=== PATIENT | female | born 1970 | race Caucasian/White ===

== ENCOUNTER 2018-03-23 10:07 | Inpatient (IN) | payer SELFPAY ==
[2018-03-23] MEDS ORDERED: LORazepam 2 MG/ML INJ IVP ONE (10:52)
--- NOTE | 2018-03-23 10:52 | EDPHY ---
General Time Seen by Provider: 03/23/18 10:30 Narrative: CHIEF COMPLAINT: I took cyanide on Monday, chest pain HISTORY OF PRESENT ILLNESS: Patient presents private vehicle with her friend with complaints ingestion cyanide on Monday. She says that she has been increasingly stressed and anxious over the past few weeks. She reports that her currently lives in [place] and she flies frequently back and forth. She also has a great fear of flying. 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 She says that this all culminated with her "just wanted to all go away." She reports taking cyanide on Monday but immediately feeling remorseful. She immediately tried to make herself vomit, and she did so several times. She says over the past few days she has had some chest pain, esophageal pain, nausea and some epigastric pain. [id number] at times. Moderate to severe at other times. No trauma or injury. No hematemesis. No dark tarry stools or hematochezia. She has no other associated complaints or modifying factors. PSYCHIATRIC DIAGNOSES: None PRIOR PSYCHIATRIC EVALUATIONS: Anxiety. Fear of flying M1/DETAINER: 10:50 a.m., Dr. Yadav and myself REVIEW OF SYSTEMS: Ten systems reviewed and are negative unless otherwise noted in the HPI EXAMINATION General Appearance: Alert, no distress. Anxious. Well-appearing. Head: normocephalic, atraumatic Eyes: Pupils equal and round, no conjunctival pallor or injection ENT, Mouth: Mucous membranes moist Neck: Normal inspection, supple, non-tender Respiratory: Lungs are clear to auscultation. No wheezing rhonchi or crackles Cardiovascular tachycardic rate and rhythm. No murmur. Gastrointestinal: Abdomen is soft and nontender Back: non-tender, no bony abnormalities Neurological: A&O, nonfocal, normal gait Skin: Warm and dry, no rash Extremities: Nontender, no pedal edema Psychiatric: Anxious mood and affect. She admits to previous suicidal ideation with no intent to harm herself at this time. She denies feeling suicidal in the past 48 hr. DIFFERENTIAL DIAGNOSES: Including but not limited to attempted suicide, depression, anxiety, stress, esophagitis, gastritis MDM: 10:50 a.m. Reported attempted sign-out ingestion on Monday with immediate remorse. She made herself vomit immediately several times. She now complains of some esophageal pain, occasional chest pain shortness of breath. She has also had some epigastric discomfort at times. She has no intent to harm herself and adamantly denies feeling suicidal over the past 48 hr. I will discuss with poison Control and obtain laboratory studies. 11:05 a.m. Case discussed with Poison Control. Recommendations are symptomatic control. No specific tests indicated. 11:50 a.m. Laboratory studies reveal an acute, critical hypokalemia with an acute kidney injury as well. The ratios do suggest pre renal azotemia. I have ordered additional fluid and she has already received 1 L. I have ordered p.o. And IV potassium. Shared he has an EKG obtained with no conduction delay. Chest x- ray unremarkable. D-dimer is negative. I discussed case with the hospitalist, [place]. The patient be admitted to the step-down unit on a monitor tech to Dr. Janeen Palomares. Patient is aware of this. She is admitted stable condition. 1:[address] Schmitt, radiology. Renal ultrasound as no acute findings. 1:23 p.m. Case discussed again with poison control. They recommended that we check a lactic acid and bicarb. They also recommend a 1 time oral loading dose of N- acetylcysteine. They recommend trending the liver function test. I have ordered these tests and here to these recommendations. I have also discussed this with the admitting physician Dr. Palomares. 2:20 p.m. Lactic acid is-0.9. Her bicarb is trending up from 11 to 16. She is mildly acidotic at 7.26. Her repeat potassium 7.5. Serum creatinine is also trending down. SUPERVISION: Patient was independently examined, but I discussed the case with my secondary supervising physician Dr. Yadav Consultation: Poison Control - Diagnostics Imaging Results: Imaging Impressions Chest X-Ray 03/23/18 10:53 Impression: No acute findings in the chest. Imaging: I viewed and interpreted images myself - History History Review: I reviewed the patient's medical records Smoking Status: Current some day smoker - Objective Vital Signs: Initial Vital Signs Heart Rate 138 H 03/23/18 10:14 Respiratory Rate 18 03/23/18 10:14 Blood Pressure 143/92 H 03/23/18 10:14 O2 Sat (%) 97 03/23/18 10:14 O2 Delivery Mode Room Air Allergies/Adverse Reactions: No Known Allergies Allergy (Verified 03/23/18 10:17) Home Medications: Medication Instructions Recorded Acetamn/Diphenhydramine 500/25 1 - 3 mg PO HS PRN 03/23/18 [Tylenol PM (*)] Acyclovir [Zovirax 400 mg (*)] 400 mg PO DAILY 03/23/18 Multivitamins [Multivitamin (*)] 1 each PO DAILY 03/23/18 Naphazoline HCl/Glycerin [Clear 1 drop OP DAILY PRN 03/23/18 Eyes Redness Relief Drop] Laboratory Results: Laboratory Results 03/23/18 10:50 03/23/18 10:50 03/23/18 03/23/18 03/23/18 11:07 10:50 10:50 WBC RBC Hgb Hct MCV MCH MCHC RDW Plt Count MPV Neut % (Auto) Lymph % (Auto) [place] % (Auto) Eos % (Auto) Baso % (Auto) Nucleat RBC Rel Count Absolute Neuts (auto) Absolute Lymphs (auto) Absolute Monos (auto) Absolute Eos (auto) Absolute Basos (auto) Absolute Nucleated RBC Immature Gran % Immature Gran # D-Dimer Sodium 127 mEq/L L mEq/L (135-145) Potassium 2.7 mEq/L L* mEq/L (3.5-5.2) Chloride 102 mEq/L mEq/L (97-110) Carbon Dioxide 11 mEq/l L mEq/l (22-31) Anion Gap 14 mEq/L mEq/L (6-14) BUN 25 mg/dL H mg/dL (7-23) Creatinine 3.2 mg/dL H mg/dL (0.6-1.0) Estimated GFR 16 Glucose 180 mg/dL H mg/dL (70-100) Calcium 10.6 mg/dL H mg/dL (8.5-10.4) Total Bilirubin 1.2 mg/dL mg/dL (0.1-1.4) Conjugated Bilirubin 0.4 mg/dL mg/dL (0.0-0.5) Unconjugated Bilirubin 0.8 mg/dL mg/dL (0.0-1.1) AST 70 IU/L H IU/L (14-46) ALT 73 IU/L H IU/L (9-52) Alkaline Phosphatase 78 IU/L IU/L (38-126) POC Troponin I 0.00 ng/mL ng/mL (0.00-0.08) Total Protein 7.8 g/dL g/dL (6.3-8.2) Albumin 4.6 g/dL g/dL (3.5-5.0) Beta HCG, Qual NEGATIVE Salicylates < 1.0 mg/dL L mg/dL (2.0-20.0) Acetaminophen < 10 mcg/mL L mcg/mL (10-30) Ethyl Alcohol < 10 mg/dL mg/dL (0-10) 03/23/18 03/23/18 10:50 10:46 WBC 10.94 10^3/uL H 10^3/uL (3.80-9.50) RBC 4.60 10^6/uL 10^6/uL (4.18-5.33) Hgb 15.0 g/dL g/dL (12.6-16.3) Hct 42.3 % % (38.0-47.0) MCV 92.0 fL fL (81.5-99.8) MCH 32.6 pg pg (27.9-34.1) MCHC 35.5 g/dL g/dL (32.4-36.7) RDW 11.9 % % (11.5-15.2) Plt Count 250 10^3/uL 10^3/uL (150-400) MPV 9.4 fL fL (8.7-11.7) Neut % (Auto) 81.2 % H % (39.3-74.2) Lymph % (Auto) 9.3 % L % (15.0-45.0) [place] % (Auto) 7.9 % % (4.5-13.0) Eos % (Auto) 0.5 % L % (0.6-7.6) Baso % (Auto) 0.4 % % (0.3-1.7) Nucleat RBC Rel Count 0.0 % % (0.0-0.2) Absolute Neuts (auto) 8.89 10^3/uL H 10^3/uL (1.70-6.50) Absolute Lymphs (auto) 1.02 10^3/uL 10^3/uL (1.00-3.00) Absolute Monos (auto) 0.86 10^3/uL H 10^3/uL (0.30-0.80) Absolute Eos (auto) 0.05 10^3/uL 10^3/uL (0.03-0.40) Absolute Basos (auto) 0.04 10^3/uL 10^3/uL (0.02-0.10) Absolute Nucleated RBC 0.00 10^3/uL 10^3/uL (0-0.01) Immature Gran % 0.7 % % (0.0-1.1) Immature Gran # 0.08 10^3/uL 10^3/uL (0.00-0.10) D-Dimer < 0.27 ug/mLFEU ug/mLFEU (0.00-0.50) Sodium Potassium Chloride Carbon Dioxide Anion Gap BUN Creatinine Estimated GFR Glucose Calcium Total Bilirubin Conjugated Bilirubin Unconjugated Bilirubin AST ALT Alkaline Phosphatase POC Troponin I Total Protein Albumin Beta HCG, Qual Salicylates Acetaminophen Ethyl Alcohol Medications Given: Discontinued Medications Al Hydroxide/Mg Hydroxide (Maalox Susp) 30 ml PO ONCE ONE Stop: 03/23/18 11:24 Last Admin: 03/23/18 11:36 Dose: 30 ml Hyoscyamine Sulfate (Levsin, Hyomax-Sl) 0.25 mg PO ONCE ONE Stop: 03/23/18 11:24 Last Admin: 03/23/18 11:36 Dose: 0.25 mg Sodium Chloride (Ns) 1,000 mls @ 0 mls/hr IV EDNOW ONE; Wide Open PRN Reason: Protocol Stop: 03/23/18 10:54 Last Admin: 03/23/18 11:09 Dose: 1,000 mls Potassium Chloride (Potassium Cl 20 Meq (Premix)) 100 mls @ 50 mls/hr IV EDNOW ONE Stop: 03/23/18 13:42 Last Admin: 03/23/18 12:07 Dose: Not Given Sodium Chloride (Ns) 1,000 mls @ 0 mls/hr IV EDNOW ONE; Wide Open PRN Reason: Protocol Stop: 03/23/18 11:47 Last Admin: 03/23/18 12:04 Dose: 1,000 mls Potassium Chloride (Potassium Cl 10 Meq (Premix)) 100 mls @ 100 mls/hr IV Q1H SUSAN Stop: 03/23/18 13:59 Last Admin: 03/23/18 13:50 Dose: 100 mls Lidocaine (Lidocaine 2% Viscous) 15 ml PO ONCE ONE Stop: 03/23/18 11:24 Last Admin: 03/23/18 11:36 Dose: 15 ml Lorazepam (Ativan Injection) 1 mg IVP EDNOW ONE Stop: 03/23/18 10:53 Last Admin: 03/23/18 11:09 Dose: 1 mg Pantoprazole Sodium (Protonix) 40 mg IVP EDNOW ONE Stop: 03/23/18 11:24 Last Admin: 03/23/18 11:36 Dose: 40 mg Potassium Chloride (Klor Packets) 40 meq PO EDNOW ONE Stop: 03/23/18 11:44 Last Admin: 03/23/18 12:00 Dose: 40 meq Promethazine HCl (Phenergan) 12.5 mg IVP ONCE ONE Stop: 03/23/18 10:54 Last Admin: 03/23/18 11:08 Dose: 12.5 mg Point of Care Test Results: Chemistry 03/23/18 11:07 POC Troponin I 0.00 ng/mL ng/mL (0.00-0.08) Departure - Departure Disposition: [facility] Clinical Impression: Acute kidney injury, Hyperkalemia, Elevated liver function tests Condition: Good
[2018-03-23] MEDS ORDERED: NS 1,000 ML IV ONE ×2 (10:53→11:46)
[2018-03-23] MEDS ORDERED: PROMETHAZINE HCL 25 MG/ML INJ IVP ONE (10:53)
[2018-03-23 11:06] LABS: PLATELET COUNT 250 10^3/uL (150-400)
[2018-03-23] MEDS ORDERED: PANTOPRAZOLE SODIUM 40 MG VIAL IVP ONE (11:23)
[2018-03-23] MEDS ORDERED: MAG HYDROX/AL HYDROX/SIMETH 30 ML UDCUP PO ONE (11:23)
[2018-03-23] MEDS ORDERED: HYOSCYAMINE SULFATE 0.125 MG TAB PO ONE (11:23)
[2018-03-23] MEDS ORDERED: LIDOCAINE 2% VISCOUS 15 ML UDCUP PO ONE (11:23)
[2018-03-23] MEDS ORDERED: POTASSIUM Cl (KCl) 100 ML IV ONE (11:43)
[2018-03-23] MEDS ORDERED: POTASSIUM CL 20 MEQ PKT PO ONE (11:43)
[2018-03-23] MEDS ORDERED: POTASSIUM Cl (KCl) 10 MEQ/100 ML BAG IV ONE (11:54)
[2018-03-23] MEDS: POTASSIUM Cl (KCl) 100 ML IV SCH ×2 (12:03→13:50)
[2018-03-23] MEDS ORDERED: ACETAMINOPHEN 325 MG TAB PO PRN (12:05)
[2018-03-23] MEDS ORDERED: ONDANSETRON 4 MG/2 ML VIAL IVP PRN (12:05)
[2018-03-23] MEDS ORDERED: ONDANSETRON DISINTEGRATING 4 MG TAB PO PRN (12:05)
[2018-03-23] MEDS ORDERED: ACETAMN/DIPHENHYDRAMINE 500/25MG TAB PO PRN (12:13)
[2018-03-23] MEDS ORDERED: GLYCERIN OP PRN (12:13)
[2018-03-23] MEDS ORDERED: NAPHAZOLINE HCL OP PRN (12:13)
[2018-03-23] MEDS ORDERED: ACETYLCYSTEINE 20% IH/PO 4 ML VIAL PO SCH (13:45)
--- NOTE | 2018-03-23 15:58 | PDGENHP ---
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 Prior to this, she was distressed by a conflict with an old friend. She also lives in a different state than her and has been stressed with travel and work. 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 Due to stress and conflict, she considered ingesting cyanide with intent to self harm. She ordered what she thought was cyanide from the internet, but then regretted it and tried to cancel the order. The substance arrived and she attempted to return it, but carried it around for days. After a conflict with a friend, she became distraught and impulsive and took the substance. She then spent several days induced vomiting and says she vomited consistently for 3-4 days. No hematemesis or coffee ground emesis. No fevers/chills. No flank pain or urinary symptoms, but she did note dark, concentrated urine. Today, she felt off balance and presented to the ED. She is embarrassed by what she did and states she is not currently suicidal. She does have h/o anxiety and panic, for which she takes occasional Valium. In the ED, she was found to have CHANEL with electrolyte disturbances and is admitted for further management. History Information - Allergies/Home Medication List Allergies/Adverse Reactions: No Known Allergies Allergy (Verified 03/23/18 10:17) Home Medications: Acetamn/Diphenhydramine 500/25 [Tylenol PM (*)] 1 - 3 mg PO HS PRN 03/23/18 [ Last Taken 03/22/18 3 tabs] Acyclovir [Zovirax 400 mg (*)] 400 mg PO DAILY 03/23/18 [Last Taken Unknown] Multivitamins [Multivitamin (*)] 1 each PO DAILY 03/23/18 [Last Taken Unknown] Naphazoline HCl/Glycerin [Clear Eyes Redness Relief Drop] 1 drop OP DAILY PRN [Last Taken Unknown] I have personally reviewed and updated: family history, medical history, social history, surgical history - Past Medical History Additional medical history: anxiety, panic attacks. chronic back pain - Surgical History Reports: no pertinent surgical hx - Family History Additional family history: brother has schizophrenia - Social History Smoking Status: Current some day smoker Alcohol Use: Other (intermittent high risk drinking) Drug Use: None Additional social history: , but lives out of state. 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 Review of Systems Review of Systems: ROS: 10pt was reviewed & negative except for what was stated in HPI & below Physical Exam Physical Exam: Temp Pulse Resp BP Pulse Ox 36.9 C 100 20 144/100 H 99 03/23/18 15:15 03/23/18 15:15 03/23/18 15:15 03/23/18 15:15 03/23/18 15:15 Constitutional: no apparent distress Eyes: PERRL Ears, Nose, Mouth, Throat: dry mucous membranes Cardiovascular: regular rate and rhythym Respiratory: no respiratory distress, clear to auscultation Gastrointestinal: normoactive bowel sounds, soft, non-tender abdomen Skin: warm Musculoskeletal: full muscle strength Neurologic: AAOx3 Psychiatric: interacting appropriately Lab Data & Imaging Review 03/23/18 10:50 03/23/18 13:35 WBC 10.94 10^3/uL (3.80-9.50) H 03/23/18 10:50 RBC 4.60 10^6/uL (4.18-5.33) 03/23/18 10:50 Hgb 15.0 g/dL (12.6-16.3) 03/23/18 10:50 Hct 42.3 % (38.0-47.0) 03/23/18 10:50 MCV 92.0 fL (81.5-99.8) 03/23/18 10:50 MCH 32.6 pg (27.9-34.1) 03/23/18 10:50 MCHC 35.5 g/dL (32.4-36.7) 03/23/18 10:50 RDW 11.9 % (11.5-15.2) 03/23/18 10:50 Plt Count 250 10^3/uL (150-400) 03/23/18 10:50 MPV 9.4 fL (8.7-11.7) 03/23/18 10:50 Neut % (Auto) 81.2 % (39.3-74.2) H 03/23/18 10:50 Lymph % (Auto) 9.3 % (15.0-45.0) L 03/23/18 10:50 Door % (Auto) 7.9 % (4.5-13.0) 03/23/18 10:50 Eos % (Auto) 0.5 % (0.6-7.6) L 03/23/18 10:50 Baso % (Auto) 0.4 % (0.3-1.7) 03/23/18 10:50 Nucleat RBC Rel Count 0.0 % (0.0-0.2) 03/23/18 10:50 Absolute Neuts (auto) 8.89 10^3/uL (1.70-6.50) H 03/23/18 10:50 Absolute Lymphs (auto) 1.02 10^3/uL (1.00-3.00) 03/23/18 10:50 Absolute Monos (auto) 0.86 10^3/uL (0.30-0.80) H 03/23/18 10:50 Absolute Eos (auto) 0.05 10^3/uL (0.03-0.40) 03/23/18 10:50 Absolute Basos (auto) 0.04 10^3/uL (0.02-0.10) 03/23/18 10:50 Absolute Nucleated RBC 0.00 10^3/uL (0-0.01) 03/23/18 10:50 Immature Gran % 0.7 % (0.0-1.1) 03/23/18 10:50 Immature Gran # 0.08 10^3/uL (0.00-0.10) 03/23/18 10:50 D-Dimer < 0.27 ug/mLFEU (0.00-0.50) 03/23/18 10:46 Puncture Site VENOUS 03/23/18 13:35 Patient Temperature 37.0 DEGREES 03/23/18 13:35 VBG pH 7.23 (7.31-7.42) L 03/23/18 13:35 VBG HCO3 15 mEQ/L (22-26) L 03/23/18 13:35 VBG Total CO2 16 mEq/L (21-27) L 03/23/18 13:35 VBG O2 Saturation 61 % (65-75) L 03/23/18 13:35 VBG Base Excess -12.0 mEq/L (-2.5-2.5) L 03/23/18 13:35 VBG Lactic Acid 0.9 mmol/L (0.7-2.1) 03/23/18 13:35 Mixed VBG pCO2 36 mmHg (40-44) L 03/23/18 13:35 Mixed VBG pO2 34 mmHG (35-40) L 03/23/18 13:35 Sodium 131 mEq/L (135-145) L 03/23/18 13:35 Potassium 3.5 mEq/L (3.5-5.2) 03/23/18 13:35 Chloride 109 mEq/L (97-110) 03/23/18 13:35 Carbon Dioxide 16 mEq/l (22-31) L 03/23/18 13:35 Anion Gap 6 mEq/L (6-14) 03/23/18 13:35 BUN 23 mg/dL (7-23) 03/23/18 13:35 Creatinine 3.0 mg/dL (0.6-1.0) H 03/23/18 13:35 Estimated GFR 17 03/23/18 13:35 Glucose 115 mg/dL (70-100) H 03/23/18 13:35 Calcium 9.1 mg/dL (8.5-10.4) 03/23/18 13:35 Total Bilirubin 0.8 mg/dL (0.1-1.4) 03/23/18 13:35 Conjugated Bilirubin 0.4 mg/dL (0.0-0.5) 03/23/18 10:50 Unconjugated Bilirubin 0.8 mg/dL (0.0-1.1) 03/23/18 10:50 AST 54 IU/L (14-46) H 03/23/18 13:35 ALT 61 IU/L (9-52) H 03/23/18 13:35 Alkaline Phosphatase 58 IU/L (38-126) 03/23/18 13:35 POC Troponin I 0.00 ng/mL (0.00-0.08) 03/23/18 11:07 Total Protein 5.9 g/dL (6.3-8.2) L 03/23/18 13:35 Albumin 3.3 g/dL (3.5-5.0) L 03/23/18 13:35 Beta HCG, Qual NEGATIVE 03/23/18 10:50 Urine Color YELLOW 03/23/18 12:30 Urine Appearance MODERATELY TURBID 03/23/18 12:30 Urine pH 6.0 (5.0-7.5) 03/23/18 12:30 Ur Specific [place] 1.011 (1.002-1.030) 03/23/18 12:30 Urine Protein 2+ (NEGATIVE) H 03/23/18 12:30 Urine Ketones 1+ (NEGATIVE) H 03/23/18 12:30 Urine Blood 1+ (NEGATIVE) H 03/23/18 12:30 Urine Nitrate NEGATIVE (NEGATIVE) 03/23/18 12:30 Urine Bilirubin NEGATIVE (NEGATIVE) 03/23/18 12:30 Urine Urobilinogen NEGATIVE EU (0.2-1.0) 03/23/18 12:30 Ur Leukocyte Esterase 2+ (NEGATIVE) H 03/23/18 12:30 Urine RBC 15-25 /hpf (0-3) H 03/23/18 12:30 Urine WBC 50-182 /hpf (0-3) H 03/23/18 12:30 Ur Epithelial Cells TRACE /lpf (NONE-1+) 03/23/18 12:30 Urine Bacteria 3+ /hpf (NONE SEEN) H 03/23/18 12:30 Granular Casts 50-182 /lpf (0-1) H 03/23/18 12:30 Urine Mucus TRACE /lpf (NONE-1+) 03/23/18 12:30 Ur Culture Indicated? INDICATED (NI) H 03/23/18 12:30 Ur Random Microalbumin Cancelled 03/23/18 12:30 Urine Glucose 3+ (NEGATIVE) H 03/23/18 12:30 Salicylates < 1.0 mg/dL (2.0-20.0) L 03/23/18 10:50 Urine Opiates Screen NEGATIVE (NEGATIVE) 03/23/18 12:30 Acetaminophen < 10 mcg/mL (10-30) L 03/23/18 10:50 Urine Barbiturates NEGATIVE (NEGATIVE) 03/23/18 12:30 Ur Phencyclidine Scrn NEGATIVE (NEGATIVE) 03/23/18 12:30 Ur Amphetamine Screen NEGATIVE (NEGATIVE) 03/23/18 12:30 U Benzodiazepines Scrn NEGATIVE (NEGATIVE) 03/23/18 12:30 Urine Cocaine Screen NEGATIVE (NEGATIVE) 03/23/18 12:30 U Marijuana (THC) Screen NEGATIVE (NEGATIVE) 03/23/18 12:30 Ethyl Alcohol < 10 mg/dL (0-10) 03/23/18 10:50 Visualized and Interpreted Chest x-ray results: Yes Chest X-Ray results: no infiltrate Visualized and Interpreted EKG results: Yes EKG Interpretation: Positive for: other (sinus tac) Assessment & Plan Assessment: Intentional ingestion with intent to cause self harm (6 days prior to arrival) -Admit to ICU for close monitoring, suicide precautions, M1 hold given severity of recent suicide attempt -TLC eval when medically cleared Acute kidney injury (Acute) - suspect pre-renal, though consider intrinsic nephrotoxicity from ingestion. u/s normal, Cr trending down after 2 L NS in ED -send ua, urine Na, Cr to check Fena, suspect pre-renal given her h/o N/V leading up to presentation Hypokalemia (Acute) - replace cautiously with CHANEL Hyponatremia (Acute) - suspect hypovolemic hyponatremia, resolving with NS in ED Elevated LFTs - mild, trend for now Metabolic acidosis - suspect starvation ketosis, resolving quickly with IVF's Anxiety - pt notes h/o panic attacks, mood lability -prn ativan, low dose with low renal clearance Full code Dispo - inpt, anticipate >48 hrs hospitalization for acute renal failure and further psychiatric evaluation once medically clear
[2018-03-23] MEDS ORDERED: LORazepam 0.5 MG TAB PO PRN (16:03)
[2018-03-23] MEDS: NS 1,000 ML IV SCH (16:09)
[2018-03-23] MEDS ORDERED: LORazepam 2 MG/ML INJ IVP PRN (16:24)
[2018-03-24] MEDS: NS 1,000 ML IV SCH (04:53)
[2018-03-24] MEDS ORDERED: POTASSIUM CL 20 MEQ TAB PO ONE (06:48)
[2018-03-24] MEDS ORDERED: NS W/ 20 KCl/L 1,000 ML IV SCH (07:00)
[2018-03-24] MEDS: PANTOPRAZOLE SODIUM 40 MG TAB PO SCH (07:59)
[2018-03-24] MEDS ORDERED: PNEUMOCOCCAL 0.5ML VACCINE VIAL (PNEUMOVAX 23) IM ONE (08:22)
--- NOTE | 2018-03-24 08:55 | PDMN ---
Medical Necessity Medical necessity: MCG: M595 substance related disorders : pt ingested cyanide type substance with intent to harm self. also with CHANEL, hypokalemia, hyponatremia, elevated LFT , metabolic acidosis, anxiety anticipate > 2 MN ongoing med nec care, further monitoring and psych eval.
[2018-03-24] MEDS ORDERED: PANTOPRAZOLE SODIUM 40 MG VIAL IVP SCH (09:00)
--- NOTE | 2018-03-24 10:12 | HOSPPROG ---
Hospitalist Progress Note Assessment/Plan: Intentional ingestion with intent to cause self harm (6 days prior to arrival) -M1 hold, TLC eval today as she is medically stable Acute kidney injury (Acute) - FeNa 1.18%, likey pre-renal, could be some ATN component. u/s normal, Cr trending down with IVF's -cont IVF's -follow Hypokalemia (Acute) - cont to replete, follow Hyponatremia (Acute) - likely hypovolemic, nearly resolved with IVF's Elevated LFTs - mild, nearly normalized with hydration Metabolic acidosis - suspect starvation ketosis, improving with IVF's -cont to follow Anxiety - pt notes h/o panic attacks, mood lability -prn ativan, though pt c/o side effects so will d/c Full code Dispo - cont inpt, TLC eval today, anticipate d/c 1-2 days Subjective: Pt feels better. Complained of confusion after IV ativan. More emotionally stable today. No N/V or fevers. Tolerating po. Good uop. Objective: Vital Signs Temp Pulse Resp BP Pulse Ox 36.9 C 88 17 142/93 H 99 03/24/18 07:48 03/24/18 07:48 03/24/18 07:48 03/24/18 07:48 03/24/18 07:48 Laboratory Results 03/24/18 04:00 03/23/18 03/24/18 03/25/18 05:59 05:59 05:59 Intake Total 2937 Output Total 500 Balance 2437 - Physical Exam Constitutional: no apparent distress Eyes: PERRL Ears, Nose, Mouth, Throat: moist mucous membranes Cardiovascular: regular rate and rhythym Respiratory: no respiratory distress, clear to auscultation Gastrointestinal: normoactive bowel sounds, soft, non-tender abdomen Skin: warm Musculoskeletal: full muscle strength Neurologic: AAOx3 Psychiatric: interacting appropriately ICD10 Worksheet Patient Problems: Problems Problem Status Onset Acute kidney injury Acute Elevated liver function tests Acute Hyperkalemia Acute
--- NOTE | 2018-03-24 17:29 | ASMTCMCOM ---
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 Pt cleared from M1Hold and will likely discharge tomorrow. [facility] reports pt has robust support system of family and friends and has been connected with outpatient resources for behavioral health. Pt to discharge independently. CM to follow. D/C Plan: [facility] Date Signed: 03/24/2018 05:29 PM Electronically Signed By:Maryam Colon
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
--- NOTE | 2018-03-24 17:33 | ASMTTCLDSP ---
TLC Discharge Disposition Disposition Notes: Notes: In consultation with [facility] Hospitalist physician, Alee Palomares MD, and on-call psychiatrist, Tejinder Estrada MD, both concurred that pt does not appear to meet 27-65 criteria requiring psychiatric hospitalization as pt does not appear to be an imminent risk of harm to self due to a mental illness condition. Dr. Sepulveda vacated the M1-hold at 16:39. Discharge Concerns/Recommendations: Notes: PT has connected with her large support system and enlisted help. Pt will follow up outpt therapist and schedule an appt with a therapist. PT also agreed to pursue treatment for alcohol abuse with [email or web address] (alternative to AA). Was patient given the Answers: Not applicable Inpatient Behavioral Health Prohibited Belongings List while in the ED? Hold initiated by: Answers: Other Notes: Hosptialist Physician Date Signed: 03/24/2018 05:33 PM Electronically Signed By:Paul Rivero
[2018-03-24] MEDS ORDERED: ALPRAZolam 0.5 MG TAB PO PRN (21:36)
[2018-03-25] MEDS ORDERED: POTASSIUM CL 20 MEQ TAB PO ONE (06:42)
[2018-03-25] MEDS: PANTOPRAZOLE SODIUM 40 MG TAB PO SCH (08:17)
[2018-03-25 08:25] VITALS: BP 147/97
--- NOTE | 2018-03-25 09:17 | CPEKG ---
Test Reason : OPEN Blood Pressure : / mmHG Vent. Rate : 102 BPM Atrial Rate : 103 BPM P-R Int : 177 ms QRS Dur : 109 ms QT Int : 341 ms P-R-T Axes : 051 083 037 degrees QTc Int : 445 ms Sinus tachycardia Confirmed by Abdoulaye Parada ([id number]) on 03/25/2018 9:17:10 AM Referred By: Confirmed By:Abdoulaye Parada
--- NOTE | 2018-03-25 19:15 | GDS ---
DISCHARGE DIAGNOSES: 1. Suicide attempt 1 week prior to arrival with ingestion of potassium ferricyanide trihydrate. 2. Acute kidney injury secondary to self-induced nausea and vomiting for several days. 3. Hypokalemia, improved. 4. Hyponatremia, improved. 5. Elevated liver function tests, improved. 6. Metabolic acidosis, improved. 7. Anxiety with panic attacks. 8. Mood instability. CONSULTANTS: None. HISTORY: For details, please see history and physical dated March 23, 2018. In brief, the patien rebel is a 47-year-old female with a history of anxiety, panic attacks, and mood lability, as well as chr onic low back pain, who presented to the emergency department 1 week after ingestion of a substance s he bought off the Internet which she thought was cyanide. Following the ingestion, she felt regretfu l and self-induced vomiting for several days. She presented with nausea, vomiting, and difficulty wa lking. She was found to have acute kidney injury with electrolyte disturbances and was admitted to [facility] for further management. HOSPITAL COURSE: The patient admitted to the intensive care unit initially on an M1 hold. This was lifted in the ER but reinstated by myself after she was found to have marked impulsivity and severe s elf-harm behaviors. It turns out the substance she ingested is not actually cyanide but some type of salt replacement. I suspect her acute kidney injury was more related to her self-induced nausea and vomiting which went on for several days. Her creatinine trended down from 3.2 to 2.2 with ongoing I V fluid resuscitation. She had her electrolytes replaced. Her potassium is 3.4 on the day of discha rge. She did receive 40 mEq of p.o. potassium and is encouraged to eat high potassium foods. In add ition, she is encouraged to maintain hydration as it seems her creatinine is improving with ongoing h ydration efforts. I suspect her metabolic acidosis is secondary to starvation ketosis in the setting of ongoing nausea and vomiting. Her serum bicarb is improving, though she does need a repeat basic metabolic panel in 2-3 days and she is advised to follow up with her primary care physician for this. She agrees to this plan. Behavioral Health consult was obtained. Her M1 hold was lifted as she wa s not deemed to be an imminent danger to herself by the [facility] consultants. An outpatient followup plan is in place for further mental health services. DISPOSITION: Patient is discharged home in stable condition. FOLLOWUP: She is to follow up with her primary care physician for repeat basic metabolic panel in 1- 2 days to ensure her creatinine continues to improve in the setting of ongoing oral hydration and als o to recheck her electrolytes. DISCHARGE MEDICATIONS: Please see [facility] for completed outpatient medication list. She was given one 10 mg tablet of Flexeril at discharge at her request for low back pain. There are no other new m edications at discharge. /[id number]/MODL
== END 2018-03-25 11:18 | disposition home or self-care (01) | DRG 918 ==
LOC: SUPCPDRO 10:07 → EEVIPCON 11:46 → F2N 15:31
PROVIDERS: ADMIT Hospitalist; ATTEND Hospitalist
DX: T65.892A Toxic effect of other specified substances, intentional self-harm, initial encounter (principal); N17.9 Acute kidney failure, unspecified; R11.2 Nausea with vomiting, unspecified; E87.6 Hypokalemia; E87.1 Hypo-osmolality and hyponatremia; F41.0 Panic disorder [episodic paroxysmal anxiety]; F60.3 Borderline personality disorder; M54.5 Low back pain; F17.210 Nicotine dependence, cigarettes, uncomplicated; R79.89 Other specified abnormal findings of blood chemistry; Z23 Encounter for immunization; E86.0 Dehydration; R07.89 Other chest pain
CPT/HCPCS: 80305; 84484-PO; 96374; G0008; G0009; G0480; J2060; J2550; J3480